=== PATIENT | male | born 1955 | race Two or more races ===

== ENCOUNTER → 2016-11-22 | Outpatient (REF) | payer OTHER ==
[2016-11-23 14:15] LABS: PSA TOTAL 14.4 ng/mL (0.0-4.0)
== END ==
LOC: M SMT 13:31
PROVIDERS: ATTEND Nurse Practitioner Women's Health
DX: R97.20 Elevated prostate specific antigen [PSA] (principal)

== ENCOUNTER → 2016-12-20 | Outpatient (CLI) | payer OTHER ==
--- NOTE | 2016-12-21 02:32 | REP ---
Clinical: Increased prostate-specific antigen levels. Technique: Transrectal reagan scale ultrasound examination in conjunction with urology for biopsy. Findings: The prostate gland is heterogeneous and enlarged with scattered parenchymal calcifications and solitary 6 x 5 mm left-sided nodular focus. Prostate gland measures 6.5 x 5.1 x 6.4 cm (110 ml). Dr. Drew performed ultrasound-guided biopsy including 13 passes with 18 gauge needle after local anesthetic. The patient tolerated procedure without evidence for complication. Impression: Enlarged heterogeneous prostate gland with single 6 mm nodule. Biopsy performed without complication. Signed by Jj Waters MD 12/21/2016 02:24 A
== END ==
LOC: M SMT PRO 08:54
PROVIDERS: ATTEND Urology
DX: R97.20 Elevated prostate specific antigen [PSA] (principal)
CPT/HCPCS: 76872; 76942; G0416

== ENCOUNTER → 2018-01-09 | Outpatient (CLI) | payer OTHER ==
[2018-01-09 17:41] LABS: PROSTATIC SPECIFIC AG MONITOR 8.31 NG/ML (< 4.0)
== END ==
LOC: M SMT 14:09
DX: R97.20 Elevated prostate specific antigen [PSA] (principal)
CPT/HCPCS: 84153

== ENCOUNTER → 2020-01-18 | Outpatient (CLI) | payer MEDICARE, OTHER ==
[2020-01-19 23:10] LABS: PSA TOTAL 24.6 ng/mL (0.0-4.0)
== END ==
LOC: M PLALAB 12:26
PROVIDERS: ATTEND Urology
DX: R97.20 Elevated prostate specific antigen [PSA] (principal)
CPT/HCPCS: 36415; 84154; G0463

== ENCOUNTER 2023-11-21 05:58 | Day surgery (SDC) | payer OTHER, MEDICAID ==
[2023-11-21] VITALS (7 sets, daily range): BP systolic 120–143; BP diastolic 70–85; TEMP 96.8–97.2; O2SAT 94–98
[~2023-11-21] VITALS: Ht 175.3 cm; Wt 76.9 kg
[~2023-11-21 05:58] MED LIST: FINA5TAB2 PO; FLOM0.4C39 PO
[2023-11-21] MEDS ORDERED: NITR100C2 PO (06:33)
[2023-11-21] MEDS ORDERED: LR 1,000 ML IV SCH (06:35)
[2023-11-21] MEDS ORDERED: ONDANSETRON 4MG 2ML VIAL As Ordered ONE (07:09)
[2023-11-21] MEDS ORDERED: fentaNYL 100 MCG/2 ML INJECTION As Ordered ONE (07:09)
[2023-11-21] MEDS ORDERED: propofoL 200 MG/20 ML VIAL As Ordered ONE (07:09)
[2023-11-21] MEDS ORDERED: GLYCOPYRROLATE INJ 0.2 MG/ML 2 ML VIAL As Ordered ONE (07:09)
[2023-11-21] MEDS ORDERED: ROCURONIUM BROMIDE 50MG/5ML VIAL As Ordered ONE (07:09)
[2023-11-21] MEDS ORDERED: LIDOCAINE 2% 100MG/5ML SDV (FOR ANES.) As Ordered ONE (07:09)
[2023-11-21] MEDS ORDERED: SUGAMMADEX SODIUM 500 MG/5 ML VIAL (BRIDION) As Ordered ONE (07:09)
[2023-11-21] MEDS ORDERED: ACETAMINOPHEN 1000MG 100ML IV BAG As Ordered ONE (07:09)
[2023-11-21] MEDS ORDERED: ONDANSETRON 4MG 2ML VIAL IV PRN ×2 (07:35→12:25)
[2023-11-21] MEDS: ceFAZolin SOD 2 GM in IV 1 EA IV ONE (07:35)
[2023-11-21] MEDS ORDERED: NS 1,000 ML IV SCH (07:35)
[2023-11-21] MEDS: HEPARIN SOD (PORCINE) 5000UNITS/ML 1ML VIAL/SYRINGE SQ ONE (07:58)
[2023-11-21] MEDS ORDERED: HYDROmorphone HCL 2MG/ML 1ML VIAL As Ordered ONE (09:52)
[2023-11-21] MEDS: LIDOCAINE 1% SDV 30ML VIAL As Ordered ONE (12:12)
[2023-11-21] MEDS ORDERED: fentaNYL 100 MCG/2 ML INJECTION IV PRN (12:25)
[2023-11-21] MEDS ORDERED: HYDROMORPHONE HCL 0.5 MG/ 0.5 ML SYRINGE IV PRN (12:25)
[2023-11-21] MEDS: HYDROMORPHONE HCL 0.5 MG/ 0.5 ML SYRINGE IV PRN (12:53)
[2023-11-21] MEDS: hydrALAZINE 20MG/ML 1ML VIAL IV PRN (13:03)
[2023-11-21] MEDS: oxyCODONE 5MG TAB PO PRN (13:17)
[2023-11-21] MEDS: oxyBUTYnin 5 MG TAB PO PRN (13:17)
[2023-11-21 13:23] LABS: HEMATOCRIT 51.2 % (42.0-52.0); MEAN CORPUSCULAR HEMOGLOBIN 29.3 pg (27.0-33.0); MEAN CORPUSCULAR HGB CONC 31.3 g/dl (32.0-36.5); MEAN CORPUSCULAR VOLUME 93.8 fl (80.0-96.0); PLATELET COUNT, AUTOMATED 234 10^3/uL (150-450); RED BLOOD COUNT 5.46 10^6/uL (4.30-6.10); WHITE BLOOD COUNT 15.1 10^3/uL (4.0-10.0)
[2023-11-21 13:52] LABS: BLOOD UREA NITROGEN 22 MG/DL (9-23); CALCIUM LEVEL 8.9 MG/DL (8.3-10.6); CARBON DIOXIDE LEVEL 24 MMOL/L (20-31); CHLORIDE LEVEL 106 MMOL/L (98-107); CREATININE FOR GFR 0.82 MG/DL (0.70-1.30); GLOMERULAR FILTRATION RATE > 60.0 (>42); GLUCOSE, FASTING 180 MG/DL (74-106); POTASSIUM SERUM 4.9 MMOL/L (3.5-5.1); SODIUM LEVEL 136 MMOL/L (136-145)
[2023-11-21] MEDS: DOCUSATE SODIUM 100MG CAPSULE PO SCH (14:00)
[2023-11-21] MEDS: ceFAZolin SOD 1 GM in D5W MINI-BAG PLUS 50 ML IV SCH (15:57)
[2023-11-21] MEDS: PERCOCET 5MG/325MG TAB PO PRN (16:03)
[2023-11-21] MEDS ORDERED: HOME MED LIST COMPLETE! XX SCH (16:30)
[2023-11-21] MEDS: LR 1,000 ML IV SCH (20:06)
[2023-11-21] MEDS: HEPARIN SOD (PORCINE) 5000UNITS/ML 1ML VIAL/SYRINGE SC SCH (20:27)
[2023-11-21] MEDS ORDERED: PERCOCET PO (20:56)
[2023-11-21] MEDS ORDERED: COLA100C5 PO (20:56)
[2023-11-22 01:00] VITALS: BP 141/72; TEMP 97.5; O2SAT 96
[2023-11-22 05:00] VITALS: BP 142/85; TEMP 97.7; O2SAT 95
[2023-11-22] MEDS: ACETAMINOPHEN TAB 650MG DOSE (2X325MG) PO PRN (05:24)
[2023-11-22 05:39] LABS: HEMATOCRIT 42.6 % (42.0-52.0); HEMOGLOBIN 14.3 g/dl (13.5-17.5); MEAN CORPUSCULAR HEMOGLOBIN 29.4 pg (27.0-33.0); MEAN CORPUSCULAR HGB CONC 33.6 g/dl (32.0-36.5); MEAN CORPUSCULAR VOLUME 87.5 fl (80.0-96.0); PLATELET COUNT, AUTOMATED 233 10^3/uL (150-450); RED BLOOD COUNT 4.87 10^6/uL (4.30-6.10); WHITE BLOOD COUNT 11.1 10^3/uL (4.0-10.0)
[2023-11-22 06:03] LABS: BLOOD UREA NITROGEN 18 MG/DL (9-23); CALCIUM LEVEL 8.8 MG/DL (8.3-10.6); CARBON DIOXIDE LEVEL 26 MMOL/L (20-31); CHLORIDE LEVEL 104 MMOL/L (98-107); CREATININE FOR GFR 0.73 MG/DL (0.70-1.30); GLOMERULAR FILTRATION RATE > 60.0 (>42); GLUCOSE, FASTING 114 MG/DL (74-106); POTASSIUM SERUM 4.1 MMOL/L (3.5-5.1); SODIUM LEVEL 135 MMOL/L (136-145)
[2023-11-22 09:00] VITALS: BP 142/83; TEMP 97.2; O2SAT 96
[2023-11-22] MEDS: PERCOCET 5MG/325MG TAB PO PRN (12:51)
[2023-11-22 13:00] VITALS: BP 146/80; TEMP 97.2; O2SAT 97
== END 2023-11-22 17:08 | disposition home or self-care (01) ==
LOC: M OR 05:58 → M SDC 05:58 → UNDOADMIN 05:58 → EDSTATUS 07:30 → M MSPAV 14:40 → M OR 14:42 → M MSPAV 14:42 → M SDC 11-22 17:08 → UNDODISIN 11-22 17:08
PROVIDERS: ATTEND Urology
DX: C61 Malignant neoplasm of prostate (principal)
CPT/HCPCS: 36415; 55866; 80048; 85027; 86850; 86900; 86901; 88309; 96365; 96366; 96372; 96376; J0131; J0360; J0665; J0690; J1100; J1170; J1596; J2405; J3010; S2900